=== PATIENT | female | born 1980 | race Caucasian/White ===

== ENCOUNTER 2019-11-22 04:39 | Emergency (ER) | payer OTHER ==
[~2019-11-22] VITALS: Ht 162.6 cm; Wt 52.3 kg
[2019-11-22 04:44] VITALS: Ht 162.6 cm; Wt 52.3 kg
[2019-11-22 05:12] LABS: BASOPHILS 0.1 % (0-2); EOSINOPHILS 0.6 % (0-7); HEMATOCRIT 35.5 % (36.0-48.0); HEMOGLOBIN 11.7 g/dL (12-16); IMMATURE GRANULOCYTES 0.1 % (0-5); LYMPHOCYTES 19.9 % (15-50); MCH 29.9 pg (26.0-34.0); MCV 90.8 fL (80.0-100.0); MEAN PLATELET VOLUME 10.3 fL (7.4-10.4); MONOCYTES 5.9 % (2-11); NEUTROPHILS 73.4 % (40-80); PLATELET COUNT 201 10x3/uL (130-400); RBC 3.91 10x6/uL (4.00-5.40); RDW 13.1 % (11.5-14.5); WBC 8.2 10x3/uL (4.8-10.8)
[2019-11-22 05:17] LABS: BILIRUBIN NEGATIVE (NEGATIVE); GLUCOSE NEGATIVE (NEGATIVE); HCG URINE NEGATIVE (NEGATIVE); KETONE SMALL mg/dL (NEGATIVE); NITRITE NEGATIVE (NEGATIVE); RED CELLS - URINE 0-5 /hpf (0-5); UROBILINOGEN NORMAL (NORMAL)
[2019-11-22 05:21] LABS: CALC OSMOLALITY 288 mosm/kg (275-300); CALCIUM 8.5 mg/dL (8.5-10.1); CARBON DIOXIDE 26.5 mmol/L (21.0-32.0); CHLORIDE - SERUM 108 mmol/L (98-107); CREATININE - SERUM 0.8 mg/dL (0.6-1.3); GLUCOSE 83 mg/dL (74-106); POTASSIUM - SERUM 3.6 mmol/L (3.5-5.1); SODIUM 146 mmol/L (136-145); UREA NITROGEN 11 mg/dL (7-18); eGFR NON AFRICAN AMERICAN 85 mL/min (90-120)
[2019-11-22 05:27] LABS: ALBUMIN 3.9 g/dL (3.4-5.0); ALKALINE PHOSPHATASE 53 U/L (30-120); ALT (SGPT) 15 U/L (10-68); BILIRUBIN - TOTAL 0.13 mg/dL (0.2-1.3); LIPASE 97 U/L (73-393); PROTEIN - SERUM 7.1 g/dL (6.4-8.2)
[2019-11-22] MEDS ORDERED: PHENERGAN25 M1 PO (06:32)
[2019-11-22 06:44] VITALS: BP 109/71
== END 2019-11-22 06:44 | disposition home or self-care (01) ==
LOC: D.ER 04:39
PROVIDERS: Family Medicine
DX: A08.4 Viral intestinal infection, unspecified (principal); G43.909 Migraine, unspecified, not intractable, without status migrainosus; R11.2 Nausea with vomiting, unspecified